=== PATIENT | male | born 1940 | race Caucasian/White ===

== ENCOUNTER 2019-04-24 05:02 | Inpatient (IN) | payer MEDICARE, MEDICAID ==
[~2019-04-24] VITALS: Ht 172.7 cm; Wt 76.7 kg
[~2019-04-24 05:02] MED LIST: ACET650T37 PO; ALPR2TAB97 MT; FLUC100T GT; FLUO20TA29 PO; HYDR-4009 PO; ONDA8TAB59 PO; QUET25TA34 PO
[2019-04-24] MEDS ORDERED: SUCCINYLCHOLINE CHLORIDE 200MG/10ML IV ONE ×2 (05:07→05:30)
[2019-04-24] MEDS ORDERED: ETOMIDATE 2MG/ML 10ML VIAL IV ONE (05:07)
[2019-04-24] MEDS ORDERED: SODIUM CHLORIDE 0.9% 1,000 ML IV ONE (05:29)
[2019-04-24] MEDS ORDERED: PANTOPRAZOLE SODIUM 40 MG/VIAL IV STA (05:29)
[2019-04-24] MEDS ORDERED: MORPHINE SULFATE 4 MG/ML CPJ (NOT FOR IM USE) IV STA (05:29)
[2019-04-24] MEDS ORDERED: ONDANSETRON HCL 4MG/2ML INJ IV STA (05:29)
[2019-04-24] MEDS ORDERED: MIDAZOLAM HCL 50 MG in DEXTROSE 5% WATER 40 ML IV ONE (05:30)
[2019-04-24] MEDS ORDERED: MIDAZOLAM HCL 2 MG/2 ML VIAL ONE (05:34)
[2019-04-24 05:47] LABS: CHLORIDE 100 mEq/L (98-107); MEAN CORPUSCULAR HEMOGLOBIN 31.9 pg (28.0-32.0); MEAN CORPUSCULAR VOLUME 96.8 fL (80.0-94.0); PLATELET 289 x1000/uL (130-400); RED CELL DISTRIBUTION WIDTH 13.8 % (11.6-14.6)
[2019-04-24 05:55] LABS: HEMATOCRIT. 20.4 % (42.0-52.0); HEMOGLOBIN. 6.7 g/dL (14.0-18.0)
[2019-04-24 05:57] LABS: INR 1.6; PROTHROMBIN TIME 16.7 sec (9.6-11.0)
[2019-04-24 06:06] LABS: PARTIAL THROMBOPLASTIN TIME > 200.0 sec (23.4-31.0)
[2019-04-24 06:22] LABS: BG BASE EXCESS -1.4 mmol/L (-2.0-2.0); BG CARBOXYHEMOGLOBIN 0.3 % (0.5-1.5); BG FRACTION INSPIRED OXYGEN 50; BG HCO3 ACT 24.7 mmol/L (22.0-26.0); BG METHEMOGLOBIN 0.4 % (0.0-1.5); BG OXYHEMOGLOBIN 97.3 % (94.0-97.0); BG PCO2 49.4 mmHg (35.0-45.0); BG PH 7.317 (7.350-7.450); BG PO2 137.5 mmHg (75.0-100.0); BG SAMPLE SITE RIGHT RADIAL; BG TIDAL VOLUME(mL) 500 mL; BG TOTAL HEMOGLOBIN 7.3 g/dL (12.0-18.0); BG VENT MODE VENT - A/C; BG VENT RATE 14 set
[2019-04-24] MEDS ORDERED: FENTANYL CITRATE/PF 500 MCG in SODIUM CHLORIDE 0.9% 40 ML IV PRN ×4 (07:00→13:45)
[2019-04-24 08:18] LABS: PLATELET ESTIMATE NORMAL
[2019-04-24] MEDS ORDERED: ACETAMINOPHEN 325MG TABLET PO PRN (09:45)
[2019-04-24] MEDS ORDERED: ONDANSETRON HCL 4MG/2ML INJ IV PRN (09:45)
[2019-04-24] MEDS: DEXT 5%/0.45% NACL 1000ML 1,000 ML IV SCH (10:00)
[2019-04-24] MEDS ORDERED: PHENYLEPHRINE 10 MG in DEXT 5% WATER 249 ML IV PRN (11:15)
[2019-04-24] MEDS ORDERED: MIDAZOLAM HCL 50 MG in DEXTROSE 5% WATER 40 ML IV PRN (11:45)
[2019-04-24] MEDS ORDERED: PIPERACILLIN/TAZOBACTAM 3.375 G in DEXT 5% WATER 100 ML IV NR (13:00)
[2019-04-24] MEDS ORDERED: MIDAZOLAM HCL 100 MG in DEXT 5% WATER 80 ML IV PRN ×3 (13:30→23:15)
[2019-04-24] MEDS ORDERED: OCTREOTIDE 1,000 MCG in SODIUM CHLORIDE 0.9% 98 ML IV SCH (13:45)
[2019-04-24] MEDS ORDERED: PIPERACILLIN/TAZ 3.375G PREMIX 50 ML IV NR (14:30)
[2019-04-24] MEDS ORDERED: PIPERACILLIN/TAZOBACTAM 3.375 G in DEXT 5% WATER 100 ML IV SCH (18:00)
[2019-04-24 22:00] VITALS: BP 105/64
[2019-04-24] MEDS ORDERED: PHENYLEPHRINE 80 MG in DEXT 5% WATER 492 ML IV PRN (22:19)
[2019-04-24 22:30] VITALS: BP 87/41
[2019-04-24] MEDS ORDERED: MIDAZOLAM HCL 100 MG in DEXTROSE 5% WATER 80 ML IV PRN (22:30)
[2019-04-24 23:00] VITALS: BP_SYST 106; BP_SYST 97; BP_DIAS 63; BP_DIAS 68
[2019-04-24 23:15] VITALS: BP 106/72
[2019-04-24 23:30] VITALS: BP 104/55
[2019-04-24] MEDS ORDERED: FENTANYL CITRATE/PF 1,000 MCG in SODIUM CHLORIDE 0.9% 80 ML IV PRN ×4 (23:30)
[2019-04-25] VITALS (34 sets, daily range): BP systolic 74–105; BP diastolic 28–58
[2019-04-25] MEDS ORDERED: OCTREOTIDE 1,000 MCG in SODIUM CHLORIDE 0.9% 98 ML IV SCH ×4 (01:00)
[2019-04-25] MEDS: DEXT 5%/0.45% NACL 1000ML 1,000 ML IV SCH ×3 (02:11→17:17)
[2019-04-25] MEDS: PIPERACILLIN/TAZOBACTAM 3.375 G in DEXT 5% WATER 100 ML IV SCH ×4 (02:13→17:16)
[2019-04-25] MEDS: PANTOPRAZOLE SODIUM 40 MG/VIAL IV SCH ×3 (02:13→17:16)
[2019-04-25] MEDS ORDERED: VANCOMYCIN 1250MG in DEXTROSE 5% WATER 250ML IV NR (04:00)
[2019-04-25 05:40] LABS: BASOPHILS % 0.1 % (0.0-2.0); EOSINOPHILS % 0.5 % (0.0-5.0); HEMATOCRIT. 26.1 % (42.0-52.0); HEMOGLOBIN. 8.7 g/dL (14.0-18.0); LYMPHOCYTES % 8.1 % (20.0-50.0); MEAN CORPUSCULAR HEMOGLOBIN 30.7 pg (28.0-32.0); MEAN CORPUSCULAR VOLUME 92.2 fL (80.0-94.0); MEAN PLATELET VOLUME 7.1 fl (7.4-10.4); MONOCYTES % 3.9 % (2.0-8.0); NEUTROPHILS % 87.4 % (40.0-76.0); PLATELET 173 x1000/uL (130-400); RED BLOOD CELL COUNT 2.83 mill/uL (4.7-6.1); RED CELL DISTRIBUTION WIDTH 15.4 % (11.6-14.6)
[2019-04-25 05:50] LABS: CHLORIDE 108 mEq/L (98-107)
[2019-04-25] MEDS ORDERED: PHYTONADIONE 10MG/ML AMP SUBCUT SCH (10:00)
[2019-04-25] MEDS: MIDODRINE HCL 5MG TABLET PO SCH ×3 (11:15→17:16)
[2019-04-25] MEDS ORDERED: POTASSIUM CHLORIDE INJ 40 MEQ in DEXT 5% WATER 250 ML IV NR (12:00)
[2019-04-25 14:07] LABS: BG CARBOXYHEMOGLOBIN 0.2 % (0.5-1.5); BG DEOXYHEMOGLOBIN 4.6 % (0.0-5.0); BG FRACTION INSPIRED OXYGEN 40; BG HCO3 ACT 26.3 mmol/L (22.0-26.0); BG METHEMOGLOBIN 0.3 % (0.0-1.5); BG OXYGEN SATURATION 95.4 % (92.0-98.5); BG OXYHEMOGLOBIN 94.9 % (94.0-97.0); BG PCO2 45.2 mmHg (35.0-45.0); BG PH 7.383 (7.350-7.450); BG PO2 77.2 mmHg (75.0-100.0); BG PRESSURE SUPPORT 8; BG SAMPLE SITE RIGHT RADIAL; BG TOTAL HEMOGLOBIN 9.5 g/dL (12.0-18.0); BG VENT MODE VENT - CPAP
[2019-04-25] MEDS ORDERED: VANCOMYCIN 1 G PREMIX 200 ML IV SCH (20:00)
[2019-04-26] VITALS (10 sets, daily range): BP systolic 77–100; BP diastolic 37–50
[2019-04-26] MEDS: PIPERACILLIN/TAZOBACTAM 3.375 G in DEXT 5% WATER 100 ML IV SCH ×4 (00:24→18:10)
[2019-04-26] MEDS: DEXT 5%/0.45% NACL 1000ML 1,000 ML IV SCH ×2 (00:36→15:31)
[2019-04-26] MEDS: VANCOMYCIN 1500MG in DEXTROSE 5% WATER 250ML IV SCH ×3 (00:36→18:52)
[2019-04-26] MEDS: PANTOPRAZOLE SODIUM 40 MG/VIAL IV SCH ×2 (08:47→17:56)
[2019-04-26] MEDS: MIDODRINE HCL 5MG TABLET PO SCH ×3 (08:50→17:57)
[2019-04-26] MEDS ORDERED: MORPHINE SULFATE 2 MG/ML CPJ (NOT FOR IM USE) IV PRN (12:00)
[2019-04-27] MEDS: PIPERACILLIN/TAZOBACTAM 3.375 G in DEXT 5% WATER 100 ML IV SCH ×3 (00:44→12:48)
[2019-04-27 04:00] VITALS: BP 89/48
[2019-04-27] MEDS ORDERED: DEXTROSE 50% WATER 50ML SYRINGE IV ONE (04:29)
[2019-04-27 07:02] LABS: BASOPHILS % 0.5 % (0.0-2.0); EOSINOPHILS % 2.2 % (0.0-5.0); HEMATOCRIT. 26.7 % (42.0-52.0); HEMOGLOBIN. 9.1 g/dL (14.0-18.0); LYMPHOCYTES % 16.6 % (20.0-50.0); MEAN CORPUSCULAR HEMOGLOBIN 31.1 pg (28.0-32.0); MEAN CORPUSCULAR VOLUME 91.6 fL (80.0-94.0); MEAN PLATELET VOLUME 7.5 fl (7.4-10.4); MONOCYTES % 5.9 % (2.0-8.0); NEUTROPHILS % 74.8 % (40.0-76.0); PLATELET 211 x1000/uL (130-400); RED BLOOD CELL COUNT 2.92 mill/uL (4.7-6.1); RED CELL DISTRIBUTION WIDTH 15.3 % (11.6-14.6)
[2019-04-27 07:52] LABS: CHLORIDE 107 mEq/L (98-107)
[2019-04-27 08:00] VITALS: BP 100/50
[2019-04-27] MEDS: PANTOPRAZOLE SODIUM 40 MG/VIAL IV SCH (09:24)
[2019-04-27] MEDS: MIDODRINE HCL 5MG TABLET PO SCH ×2 (09:25→12:48)
[2019-04-27 12:00] VITALS: BP 90/48
[2019-04-27] MEDS ORDERED: POTASSIUM CHLORIDE 20MEQ TABLET SR PO SCH (13:15)
[2019-04-27] MEDS ORDERED: VANCOMYCIN 1250MG in DEXTROSE 5% WATER 250ML IV SCH (15:00)
== END 2019-04-27 15:20 | disposition hospice, home (50) | DRG 871 ==
LOC: ER 05:02 → MICUSO 06:23 → ENRESERV 21:36 → 6EST 04-26 05:11
PROVIDERS: ADMIT Internal Medicine; ATTEND Internal Medicine
PROC: 5A1945Z Respiratory Ventilation, 24-96 Consecutive Hours (ICD-10-PCS; principal; 2019-04-24)
PROC: 30233N1 Transfusion of Nonautologous Red Blood Cells into Peripheral Vein, Percutaneous Approach (ICD-10-PCS; 2019-04-24)
DX: A41.9 Sepsis, unspecified organism (principal); J96.00 Acute respiratory failure, unspecified whether with hypoxia or hypercapnia; E43 Unspecified severe protein-calorie malnutrition; R65.21 Severe sepsis with septic shock; R57.8 Other shock; C16.9 Malignant neoplasm of stomach, unspecified; E87.2 Acidosis; M48.54XA Collapsed vertebra, not elsewhere classified, thoracic region, initial encounter for fracture; D68.9 Coagulation defect, unspecified; K92.2 Gastrointestinal hemorrhage, unspecified; K57.90 Diverticulosis of intestine, part unspecified, without perforation or abscess without bleeding; J44.9 Chronic obstructive pulmonary disease, unspecified; F10.21 Alcohol dependence, in remission; I10 Essential (primary) hypertension; D53.9 Nutritional anemia, unspecified; D50.0 Iron deficiency anemia secondary to blood loss (chronic); Z51.5 Encounter for palliative care; E11.9 Type 2 diabetes mellitus without complications; F03.90 Unspecified dementia, unspecified severity, without behavioral disturbance, psychotic disturbance, mood disturbance, and anxiety; Z66 Do not resuscitate; Z85.028 Personal history of other malignant neoplasm of stomach; Z93.1 Gastrostomy status; Z79.899 Other long term (current) drug therapy; Z87.891 Personal history of nicotine dependence; Z68.25 Body mass index [BMI] 25.0-25.9, adult
CPT/HCPCS: 36415; 36600; 71045; 80048; 80053; 80202; 82375; 82805; 83605; 83735; 85018; 85025; 86850; 86870; 86900; 86920; 87070; 93005; 93970; 94002; 94003; 99291; C9113; J0330; J2250; J2270; J2354; J2405; J2543; J3010; J3370; J3430; J3480; J3490; J7030; J7050; J7060; P9016